=== PATIENT | female | born 1985 | race Caucasian/White ===

== ENCOUNTER → 2021-09-13 15:48 | Outpatient (CLI) | payer BC, SELFPAY ==
--- NOTE | ~2021-09-13 | US_ITS ---
EXAMINATION: US OB <= 14 weeks fetus DATE: 09/13/2021 16:23 INDICATION: Second trimester . History of spontaneous . TECHNIQUE: Real-time transabdominal obstetric ultrasound. FINDINGS: No prior studies for comparison. The uterus measures 13.8 x 6.9 x 9.1 cm. There is an intrauterine gestational sac, with pole id entified. The crown rump length measures 2.2 cm, which correlates with a estimated gestational age o f 10 weeks 1 day. heart tones are identified measuring 162 BPM. The ovaries are not visualize d. No free fluid in the pelvis. IMPRESSION: 1. SL IUP with an EGA of 10 weeks, 6 days (EDC by current ultrasound of 04/10/2022). Reviewed, dictated and finalized at location B. ORT UTILITY WORKER IMPRESSION: 1. SL IUP with an EGA of 10 weeks, 6 days (EDC by current ultrasound of 04/10/20 22).
== END ==
PROVIDERS: Visit Provider Obstetrics & Gynecology Gynecology
DX: O26.21 Pregnancy care for patient with recurrent pregnancy loss, first trimester (principal); Z3A.10 10 weeks gestation of pregnancy
CPT/HCPCS: 76801

== ENCOUNTER → 2021-11-11 11:08 | Outpatient (CLI) | payer BC, SELFPAY ==
--- NOTE | ~2021-11-11 | US_ITS ---
US OB /maternal detail DATE: 11/11/2021 11:48 INDICATION: anatomy screen TECHNIQUE: Real-time imaging and Doppler analysis COMPARISON: 09/13/2021 obstetrical ultrasound FINDINGS: Live andrews intrauterine gestation, fetus in breech presentation. Anterior placenta, lower margin 4 centers above internal os. Subjectively normal amount of amniotic fluid. No cerebral ventriculomegaly. The cerebellum appears normal. Normal nuchal fold. Normal c isterna magna. Normal upper lip appears normal. Normal cervical spine. diaphragm is intac t. No hydronephrosis. 4 chamber heart with heart rate of 142 bpm. Normal left and r ight ventricular outflow tracts. Three-vessel CORD with normal insertion at abdominal wall. Fluid is demonstrated in the s tomach and urinary bladder. End extremities appear unremarkable. Biparietal diameter 4.02 cm; 19 weeks 5 days estimated gestational age Head circumference 16.56 cm; 19 weeks 2 days Abdominal circumference 14.08 cm; 19 weeks 3 days Femur length 2.71 cm; 18 weeks 2 days Composite age by Hadlock formula is 19 weeks 1 day +/- 1 week 2 days with ROSANA of 04/02/2022, compared to 04/10/2022 according to 09/13/2021 obstetrical ultrasound examination. Estimated weight-GP: 69.7% Estimated weight 266.7 +/- 40 g Head circumference/abdominal repair specialist was 1.18, within normal range of 1.09-1.26 Femur length/head circumference 16.38, within normal range of 16.20-18.51 IMPRESSION: Normal anatomy screen Breech presentation Reviewed, dictated and finalized at Location A. Reviewed, dictated and finalized at location A. 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
== END ==
PROVIDERS: Visit Provider Obstetrics & Gynecology Gynecology
DX: Z36.9 Encounter for antenatal screening, unspecified (principal); Z3A.00 Weeks of gestation of pregnancy not specified
CPT/HCPCS: 76805

== ENCOUNTER → 2022-01-06 07:45 | Outpatient (CLI) | payer BC, SELFPAY ==
--- NOTE | ~2022-01-06 | US_ITS ---
EXAMINATION: US OB follow up EXAM DATE: 01/06/2022 08:31 INDICATION: Size greater than dates. Late 2nd trimester. TECHNIQUE: Pelvic obstetrical transabdominal sonogram was performed by a technologist. There are mu ltiple grayscale and Doppler images available for interpretation. Comparison is made to prior examina tion from 11/11/2021. FINDINGS: There is a single fetus identified which has moved into vertex presentation with a heart ra te of 146 beats per minute. The placenta is located in the anterior position. There is no sonographi c evidence of retroplacental hemorrhage identified. The amniotic fluid index is 19.3 centimeters, whi ch is normal. BIOMETRIC DATA: Biparietal diameter (BPD): 7.2 cm ----------------> 28 weeks 6 days. Head circumference (HC): 26.0 cm ----------------> 28 weeks 2 days. Abdominal circumference (AC): 24.0 cm ----------> 28 weeks 2 days. Femur length (FL): 5.1 cm --------------------------> 27 weeks 2 days. These measurements are concordant. HC/AC ratio is 1.08 (The 5th -- 95th percentile range is 1.02-1.21. Estimated weight is 1150 g +/- 173 g. This is the 90th percentile when the currently reported clinical gestation age 26 weeks 4 days, clinical estimated date of delivery (ROSANA-OPE) 04/10/2022 is us ed. estimated gestational age based on measurements from this exam is 28 weeks 1 day, with an e stimated date of delivery (ROSANA-AUA) 03/30. IMPRESSION: 1. Single fetus in vertex presentation with heart rate 146 beats per minute. 2. Estimated weight of 1150 grams, 173 percentile using the currently reported clinical gestat ion age of 26 weeks 4 days, ROSANA(OPE) 04/10. 3. Normal FAY 19.2 cm. Reviewed, dictated and finalized at location G. IMPRESSION: 1. Single fetus in vertex presentation with heart rate 146 beats per minute. 2. Estimated weight of 1150 grams, 173 percentile using the currently re ported clinical gestation age of 26 weeks 4 days, ROSANA(OPE) 04/10. 3. Normal FAY 19.2 cm.
== END ==
PROVIDERS: Visit Provider Obstetrics & Gynecology Gynecology
DX: O36.63X0 Maternal care for excessive fetal growth, third trimester, not applicable or unspecified (principal); Z3A.28 28 weeks gestation of pregnancy
CPT/HCPCS: 76816

== ENCOUNTER 2022-03-30 08:17 | Inpatient (IN) | payer BC, SELFPAY ==
[2022-03-30] VITALS (55 sets, daily range): BP systolic 92–137; BP diastolic 45–78; PULSE 52–84; RESP 12–20; TEMP 36.1–36.8; O2SAT 96–100; BMI 38.2
[2022-03-30 09:17] LABS: Basophils Percent Auto 0.4 % (0.2-1.2); Eosinophils Absolute Auto 0.1 K/mm3 (0-0.3); Eosinophils Percent Auto 1.4 % (0-4.4); Hematocrit 42.6 % (37.0-47.0); Hemoglobin 14.4 g/dL (12.0-15.0); Immature Granulocyte Absolute 0.09 K/mm3 (0.00-0.031); Immature Granulocyte Percent A 1.2 % (0-0.5); Immature Platelet Fraction Pct 10.1 % (0.9-11.2); Lymphocytes Absolute Auto 2.23 K/mm3 (0.9-3.2); Lymphocytes Percent Auto 28.9 % (18.3-44.2); Mean Corpuscular HGB Conc 33.8 g/dl (32-36); Mean Corpuscular Hemoglobin 30.8 pg (26-34); Mean Corpuscular Volume 91.2 fl (80-100); Monocytes Absolute Auto 0.7 K/mm3 (0.1-0.6); Monocytes Percent Auto 8.4 % (2.6-8.5); Neutrophils Absolute Auto 4.6 K/mm3 (1.3-6.7); Neutrophils Percent Auto 59.7 % (45.5-73.1); Platelet Count Result 145 k/mm3 (150-375); Red Blood Count 4.67 M/mm3 (4.2-5.4); Red Cell Distribution Width 12.4 % (11.5-14.5); White Blood Count 7.7 K/mm3 (4.5-10.0)
[2022-03-30 09:27] LABS: Creatinine Urine 18.8 mg/dL; Total Protein Urine Random 45 mg/dL; Ur Ttl Prot Creatinine Ratio 2.39 mg/mg (0-0.20)
[2022-03-30 09:42] LABS: Alanine Aminotransferase 16 U/L (6-35); Albumin Level 3.6 g/dL (3.5-5.1); Alkaline Phosphatase 206 U/L (38-126); Anion Gap 5 mmol/L (8-16); Aspartate Amino Transferase 25 U/L (14-36); Bilirubin,Total 0.1 mg/dL (0.2-1.3); Blood Urea Nitrogen 10 mg/dL (7-17); Calcium 9.3 mg/dL (8.4-10.2); Carbon Dioxide 22 mmol/L (22-30); Chloride 104 mmol/L (98-107); Estimated Glomerular Filt Rate > 60; Glucose 97 mg/dL (65-110); Potassium 4.1 mmol/L (3.4-5.0); Sodium 131 mmol/L (137-145); Uric Acid 4.8 mg/dL (2.5-7.5)
[2022-03-30 10:00] LABS: Add Urine Microscopic? YES; Appearance Urine Clear (Clear); Bilirubin Urine Negative (Negative); Blood Urine Trace-lysed (Negative); Color Urine Yellow (Yellow); Glucose Urine UA Negative (Negative); Ketones Urine Negative (Negative); Leukocyte Esterase Ur Negative LEU/UL (NEGATIVE); Nitrate Urine Negative (Negative); Protein Urine Trace mg/dL (Negative); Urobilinogen Urine 0.2 mg/dL (<2.0); pH Urine 6.5 (5.0-9.0)
[2022-03-30 10:01] LABS: Bacteria Urine Trace /hpf; RBC Urine 0-2 /hpf (0-2); Squamous Epithelial Cell Urine Occasional /hpf (Few); WBC Urine 0-3 /hpf (0-3)
--- NOTE | 2022-03-30 10:28 | PC.NURSE ---
Dr. Odonnell informed of pt's BP's and lab results. Transferred call to portable phone and taken to pt room for MD to speak with pt regarding plan for care. Pt was offered to have her C/S done tonight after Dr. Odonnell done in office or she can go home and monitor her BP's over the weekend. Pt opted for delivering today. Verifying C/S time with anesthesia.
--- NOTE | 2022-03-30 10:53 | PC.NURSE ---
Dr. Odonnell informed of times offered by anesthesia. Decision made to go right after the next case. Pt informed of time change.
[2022-03-30] MEDS: LACTATED RINGERS 1,000 ML 125 ML IV CONT ×2 (12:00→18:49)
--- NOTE | 2022-03-30 12:03 | LDADM ---
This patient, Hina Ambriz, was admitted to OB Post 115 on 03/30/22 at 08:17. Plans for labor, pain management and were discussed with patient. Patient/family oriented to hospital policies and general routines including ID bracelet, bed and alarms, visiting hours, pain management, procedures, bathroom and other care routines, personal items, smoking policy, room service/diet and guest tray routines, infant security routines, and visiting hours. Patient/Family are encouraged to report perceived risks to care and to ask questions if they do not understand what they are told or what they should do. See OBIX for further documentation.
--- NOTE | 2022-03-30 12:06 | WPDANESEPPF ---
Anes - Initial Pre Proc Eval Procedure: Operation Date: 04/03/22 07:30 Proposed Procedures p Repeat Section, Possible Bilateral Tubal Ligation - Pat Odonnell MD Date/Time: 03/30/22 12:06 Surgeon: Pat Odonnell MD Pre Op Diagnosis: high bp Patient Data Age: 36 Gender: F Height: 1.63 m Weight: 101.2 kg Allergies Allergy/AdvReac Type Severity Reaction Status Date / Time No Known Allergies Allergy Unverified 06/30/18 13:12 Home Medications Medication Instructions Recorded Confirmed Type Antacid (calcium carbonate) 03/17/22 History ergocalciferol (vitamin D2) 1,250 1,250 mcg PO WEEKLY 03/17/22 03/17/22 History mcg (50,000 unit) capsule (Vitamin D2) famotidine 20 mg tablet (Pepcid) 20 mg PO DAILY 03/17/22 03/17/22 History prenat.vits,lena,tiv-[id number]-hlqar 1 tablet 03/17/22 History Laboratory Tests 03/30/22 03/30/22 03/30/22 09:05 09:05 09:05 WBC 7.7 K/mm3 K/mm3 (4.5-10.0) RBC 4.67 M/mm3 M/mm3 (4.2-5.4) Hgb 14.4 g/dL g/dL (12.0-15.0) Hct 42.6 % % (37.0-47.0) MCV 91.2 fl fl (80-100) MCH 30.8 pg pg (26-34) MCHC 33.8 g/dl g/dl (32-36) RDW 12.4 % % (11.5-14.5) Plt Count 145 k/mm3 L k/mm3 (150-375) MPV 11.0 fl H fl (7.4-10.4) Immature Gran % (Auto) 1.2 % H % (0-0.5) Neut % (Auto) 59.7 % % (45.5-73.1) Lymph % (Auto) 28.9 % % (18.3-44.2) [place] % (Auto) 8.4 % % (2.6-8.5) Eos % (Auto) 1.4 % % (0-4.4) Baso % (Auto) 0.4 % % (0.2-1.2) Lymph # (Auto) 2.23 K/mm3 K/mm3 (0.9-3.2) [place] # (Auto) 0.7 K/mm3 H K/mm3 (0.1-0.6) Eos # (Auto) 0.1 K/mm3 K/mm3 (0-0.3) Baso # (Auto) 0.0 K/mm3 K/mm3 (0.0-0.1) Abs Immat Gran (auto) 0.09 K/mm3 H K/mm3 (0.00-0.031) Absolute Neuts (auto) 4.6 K/mm3 K/mm3 (1.3-6.7) Absolute Nucleated RBC 0.0 K/mm3 K/mm3 (0.0-0.012) Nucleated RBC % 0.0 % % (0.0-0.2) % Immature Plt Fraction 10.1 % % (0.9-11.2) Sodium Potassium Chloride Carbon Dioxide Anion Gap BUN Creatinine Estim Creat Clear Calc Estimated GFR Glucose Uric Acid Calcium Total Bilirubin AST ALT Alkaline Phosphatase Total Protein Albumin Urine Color Yellow (Yellow) Urine Appearance Clear (Clear) Urine pH 6.5 (5.0-9.0) Ur Specific [place] 1.010 (1.001-1.035) Urine Protein Trace mg/dL mg/dL (Negative) Urine Glucose (UA) Negative mg/dL mg/dL (Negative) Urine Ketones Negative mg/dL mg/dL (Negative) Ur Blood (Man) Trace-lysed (Negative) Urine Nitrate Negative (Negative) Urine Bilirubin Negative (Negative) Urine Urobilinogen 0.2 mg/dL mg/dL (<2.0) Ur Leukocyte Esterase Negative JUANCHO/UL JUANCHO/UL (NEGATIVE) Urine RBC 0-2 /hpf /hpf (0-2) Urine WBC 0-3 /hpf /hpf (0-3) Ur Squamous Epith Cells Occasional /hpf /hpf (Few) Urine Bacteria Trace /hpf /hpf U Random Total Protein 45 mg/dL mg/dL Urine Creatinine 18.8 mg/dL mg/dL Protein/Creat Ratio 2 2.39 mg/mg H mg/mg (0-0.20) RPR 03/30/22 03/30/22 09:05 11:27 WBC RBC Hgb Hct MCV MCH MCHC RDW Plt Count MPV Immature Gran % (Auto) Neut % (Auto) Lymph % (Auto) [place] % (Auto) Eos % (Auto) Baso % (Auto) Lymph # (Auto) [place] # (Auto) Eos # (Auto)
--- NOTE | 2022-03-30 12:12 | WPDHPUPDATE1 ---
History and Physical Update Update Date/Time: 03/30/22 12:12 History and Physical has been reviewed, including an updated exam of the patient. There are NO changes in the patient's condition. Risks, benefits, and alternatives have been discussed and questions answered. Patient agrees to proceed with procedure.
--- NOTE | 2022-03-30 12:12 | PM.IMHP ---
H&P: HPI History of Present Illness Date/Time: 03/30/22 12:12 Chief Complaint: -induced hypertension Narrative: the patient is a 36-year-old 4 ferrous 2 aborta 1 admitted at 38 and 4 7th weeks from the office secondary to elevated blood pressure and +3 proteinuria. PIH labs were performed and patient has slightly low platelets and an elevated protein creatinine ratio. Patient was initially scheduled for repeat at 39 weeks. The plan is to proceed today with . Risks of infection, bleeding, injury to internal organs, and anesthesia were reviewed. Patient agrees and voices understanding. All questions are answered. labs B positive, rubella nonimmune, RPR negative, hepatitis-B surface antigen negative, HIV negative, group B strep positive. Due to her advanced maternal age she was offered level 2 ultrasound and noninvasive testing which she declined. Review of Systems Review of Systems: No PIH symptoms good movement [facility] Surgical History Surgical History (Updated 03/30/22 @ 12:18 by Pat Odonnell MD) History of x2 Status post laparoscopic cholecystectomy Family History Family History Grandparent Family history of cardiovascular disease Parkinson disease Mother Dementia Grandparent Breast cancer in female Grandparent Chronic obstructive pulmonary disease Grandparent Diverticulitis Other Patient's mother is Social History Social History Smoking status: Never smoker Alcohol intake: current Substance use: never Spiritual care concerns: No Meds Home Medications and Allergies Home Medications Medication Instructions Recorded Confirmed Type Antacid (calcium carbonate) 1 tablet PO PRN PRN Heartburn 03/17/22 03/30/22 History ergocalciferol (vitamin D2) 1,250 1,250 mcg PO WEEKLY 03/17/22 03/30/22 History mcg (50,000 unit) capsule (Vitamin D2) famotidine 20 mg tablet (Pepcid) 20 mg PO DAILY 03/17/22 03/30/22 History prenat.vits,lena,jlr-azhp-bmoqs 1 tablet PO DAILY 03/17/22 03/30/22 History Allergies Allergy/AdvReac Type Severity Reaction Status Date / Time No Known Allergies Allergy Unverified 06/30/18 13:12 Exam Const: General: healthy appearing and alert Orientation/consciousness: patient oriented x3 GI: GI Palp: Yes Soft to palpation, No Tenderness to palpation present (GI) and Yes Other GI palpation findings present ( Fundal height 44cm & heart tones 140s) : External Female Exam: normal external appearance Speculum Exam - Vagina: normal appearance of the vagina and normal vaginal discharge Speculum Exam - Cervix: normal appearance of the cervix Bimanual exam- vagina & uterus: consistency normal Bimanual Exam- Adnexa, other: normal adnexae and No adnexal tenderness Neuro: General: patient oriented x3 H&P: Results Labs Labs: Short CBC 03/30/22 Range/Units 09:05 WBC 7.7 (4.5-10.0) K/mm3 Hgb 14.4 (12.0-15.0) g/dL Hct 42.6 (37.0-47.0) % Plt Count 145 L (150-375) k/mm3 BMP 03/30/22 09:05 Sodium 131 L Potassium 4.1 Chloride 104 Carbon Dioxide 22 BUN 10 Creatinine 0.50 L Glucose 97 Calcium 9.3 Liver Function 03/30/22 Range/Units 09:05 Total Bilirubin 0.1 L (0.2-1.3) mg/dL AST 25 (14-36) U/L ALT 16 (6-35) U/L Alkaline Phosphatase 206 H (38-126) U/L Albumin 3.6 (3.5-5.1) g/dL Urine 03/30/22 Range/Units 09:05 Urine Color Yellow (Yellow) Urine Appearance Clear (Clear) Urine pH 6.5 (5.0-9.0) Ur Specific [place] 1.010 (1.001-1.035) Urine Protein Trace (Negative) mg/dL Urine Glucose (UA) Negative (Negative) mg/dL Assessment and Plan Assessment and plan (1) History of : Code(s): Z98.891 - History of uterine scar from previous surgery Status: Acute Assessment and Plan: plan i
[2022-03-30] MEDS: ceFAZolin 2 GM/D5W 50 ML 2 GM/50 ML BAG IVPB (12:25)
[2022-03-30] MEDS: KETOROLAC 30 MG/ML VIAL (*BKC) 15 MG IV PUSH (12:48)
--- NOTE | 2022-03-30 13:13 | P.OP_ITS ---
Procedure Note - Detailed Date of Procedure 03/30/22 Pre-op Diagnosis Intrauterine at 38 and 4 7th weeks Previous x2 Gestational hypertension probable preeclampsia Post-op Diagnosis Same Procedure Performed Repeat low-transverse section Surgeon Pat Odonnell MD Anesthesia Spinal Findings Male infant weighing 9lb 9oz with 8 and 9 Apgars. True knot in the cord. Normal-appearing tubes, ovaries, and uterus. Description of Procedure The patient is taken to the operating room and placed under anesthesia in the dorsal supine position with a leftward tilt. Once anesthesia was deemed adequate she was prepped and draped in the usual sterile fashion. Pfannenstiel skin incision was made through the prior incision. Incision was carried down to the fascia which was nicked in the midline. Incision was extended laterally using Dorsey scissors. Ochsner was used to tent the fascia which was then dissected off using sharp dissection. Peritoneum was tented with a Peon and entered with Metzenbaum scissors. Bladder blade is placed and the vesicouterine peritoneum grasped and entered with Metzenbaum and extended laterally. Bladder flap was created digitally. Bladder blade is replaced. Lower uterine segment was incised in a transverse fashion with the scalpel and extended laterally using blunt traction. Clear fluid upon rupture of membranes is noted. The 's head was brought up into the incision and delivered while the certified surgical assistant applied fundal pressure. The was fully delivered and the cord clamped and cut and handed to the waiting nursery nurse. True knot in the cord is noted. Placenta was removed using manual traction after cord blood for gases and lap were drawn. The placenta is sent to pathology. Uterus was cleared of all clots and debris and exteriorized. The uterine incision was closed using 0 Monocryl in a running locked fashion. Same suture was used to imbricate. Good hemostasis is noted. The cul-de-sac is irrigated and the uterus returned to the abdomen. Gutters are irrigated. Incision was again inspected noted to be hemostatic. The fascia was closed using 0 Vicryl in a running fashion. Subcutaneous tissues were irrigated and made hemostatic using Bovie cautery. The skin incision was closed using 4-0 Vicryl in a subcuticular fashion. Dermaflex was placed over the incision. Sponge, needle, and instrument counts are correct per the OR staff. Patient was given Ancef prior to incision. Patient is a taken to recovery in stable condition. Estimated Blood Loss 235 Drains Yes (Schmid catheter) Packing No Pathology Yes (Placenta) Complications No immediate complications Condition Stable Disposition Floor
--- NOTE | 2022-03-30 13:17 | PM.OBDSVD ---
DS: Admitting Diagnosis Discharge Date 04/01/22 Admitting Diagnosis Intrauterine at 38 and 4 7th weeks Prior x2 Gestational hypertension DS: Discharge Diagnosis Discharge Diagnosis (1) 38 weeks gestation of : Code(s): Z3A.38 - 38 weeks gestation of Status: Acute (2) delivery delivered: Code(s): O82 - Encounter for delivery without indication Status: Acute (3) Preeclampsia: Code(s): O14.90 - Unspecified pre-eclampsia, unspecified trimester Status: Acute OB - DS: Summary OB Procedures : NST, PIH Mgmt and Ultrasound OB Procedures Intrapartum: low cervical, transverse OB Procedures: : None Peripartum Data Delivery Method: Section Procedures: Procedures Operation Date: 03/30/22 12:30 <No data on this case meets the specified criteria> complications: none Status at Discharge Functional status at discharge: independent ambulation Overall status at discharge: patient is progressing back to baseline Time Spent with Patient Time attestation: Total time spent providing and/or coordinating discharge services: DS: Data Data Completed and Pending Labs on day of discharge: Labs from last 24 hours 03/30/22 03/30/22 03/30/22 11:27 11:27 09:05 WBC RBC Hgb Hct MCV MCH MCHC RDW Plt Count MPV Immature Gran % (Auto) Neut % (Auto) Lymph % (Auto) [place] % (Auto) Eos % (Auto) Baso % (Auto) Lymph # (Auto) [place] # (Auto) Eos # (Auto) Baso # (Auto) Abs Immat Gran (auto) Absolute Neuts (auto) Absolute Nucleated RBC Nucleated RBC % % Immature Plt Fraction Sodium 131 L Potassium 4.1 Chloride 104 Carbon Dioxide 22 Anion Gap 5 L BUN 10 Creatinine 0.50 L Estim Creat Clear Calc Not Reportable Estimated GFR > 60 Glucose 97 Uric Acid 4.8 Calcium 9.3 Total Bilirubin 0.1 L AST 25 ALT 16 Alkaline Phosphatase 206 H Total Protein 7.0 Albumin 3.6 Urine Color Urine Appearance Urine pH Ur Specific [place] Urine Protein Urine Glucose (UA) Urine Ketones Ur Blood (Man) Urine Nitrate Urine Bilirubin Urine Urobilinogen Ur Leukocyte Esterase Urine RBC Urine WBC Ur Squamous Epith Cells Urine Bacteria U Random Total Protein Urine Creatinine Protein/Creat Ratio 2 RPR Pending Blood Type B Positive Antibody Screen Negative 03/30/22 03/30/22 03/30/22 09:05 09:05 09:05 WBC 7.7 RBC 4.67 Hgb 14.4 Hct 42.6 MCV 91.2 MCH 30.8 MCHC 33.8 RDW 12.4 Plt Count 145 L MPV 11.0 H Immature Gran % (Auto) 1.2 H Neut % (Auto) 59.7 Lymph % (Auto) 28.9 [place] % (Auto) 8.4 Eos % (Auto) 1.4 Baso % (Auto) 0.4 Lymph # (Auto) 2.23 [place] # (Auto) 0.7 H Eos # (Auto) 0.1 Baso # (Auto) 0.0 Abs Immat Gran (auto) 0.09 H Absolute Neuts (auto) 4.6 Absolute Nucleated RBC 0.0 Nucleated RBC % 0.0 % Immature Plt Fraction 10.1 Sodium Potassium Chloride Carbon Dioxide Anion Gap BUN Creatinine Estim Creat Clear Calc Estimated GFR Glucose Uric Acid Calcium Total Bilirubin AST ALT Alkaline Phosphatase Total Protein Albumin Urine Color Yellow Urine Appearance Clear Urine pH 6.5 Ur Specific [place] 1.010 Urine Protein Trace Urine Glucose (UA) Negative Urine Ketones Negative Ur Blood (Man) Trace-lysed Urine Nitrate Negative Urine Bilirubin Negative Urine Urobilinogen 0.2 Ur Leukocyte Esterase Negative Urine RBC 0-2 Urine WBC 0-3 Ur Squamous Epith Cells Occasional Urine Bacteria Trace U Random Total Protein 45 Urine Creatinine 18.8 Protein/Creat Ratio 2 2.39 H RPR Blood Type Antibody Screen Disch
[2022-03-30] MEDS: OXYTOCIN 30 UNITS/NS 500 ML 30 UNITS/500 ML BAG 125 UNITS IV CONT (14:37)
--- NOTE | 2022-03-30 15:18 | PC.NURSE ---
Report given to Danelle Nurse.
[2022-03-30] MEDS: MORPHINE SULFATE INJ (*CRX) 10 MG/ML AMP 2 MG IV PUSH (15:23)
[2022-03-30 17:18] LABS: Rapid Plasma Reagin Non-Reactive (NonReactive)
--- NOTE | 2022-03-30 18:31 | OBPPTRN ---
1547 Patient transferred to post room #284 via stretcher. Support person present. Oriented to unit, room, information board, rooming in, admission packet and security measures. Patient verbalizes understanding.
[2022-03-30] MEDS: DOCUSATE SODIUM 100 MG CAPSULE PO (20:30)
[2022-03-30] MEDS: KETOROLAC 30 MG/ML VIAL (*BKC) IV PUSH (20:30)
[2022-03-31] MEDS: ACETAMINOPHEN 325 MG TABLET 650 MG PO (00:47)
[2022-03-31] MEDS: LANOLIN (LANSINOH) 7.5 GM CREAM 1 APPLIC TOPICAL (00:48)
[2022-03-31 01:05] VITALS: PULSE 72; RESP 16; O2SAT 98
[2022-03-31 03:36] VITALS: BP 115/69; PULSE 64; RESP 16; TEMP 36.7; O2SAT 98
[2022-03-31 04:35] LABS: Basophils Percent Auto 0.3 % (0.2-1.2); Eosinophils Absolute Auto 0.1 K/mm3 (0-0.3); Eosinophils Percent Auto 0.7 % (0-4.4); Hematocrit 41.7 % (37.0-47.0); Hemoglobin 13.9 g/dL (12.0-15.0); Immature Granulocyte Absolute 0.06 K/mm3 (0.00-0.031); Immature Granulocyte Percent A 0.7 % (0-0.5); Immature Platelet Fraction Pct 10.2 % (0.9-11.2); Lymphocytes Absolute Auto 1.64 K/mm3 (0.9-3.2); Lymphocytes Percent Auto 18.7 % (18.3-44.2); Mean Corpuscular HGB Conc 33.3 g/dl (32-36); Mean Corpuscular Volume 93.1 fl (80-100); Mean Platelet Volume 11.2 fl (7.4-10.4); Monocytes Absolute Auto 0.6 K/mm3 (0.1-0.6); Monocytes Percent Auto 6.4 % (2.6-8.5); Neutrophils Absolute Auto 6.4 K/mm3 (1.3-6.7); Neutrophils Percent Auto 73.2 % (45.5-73.1); Platelet Count Result 109 k/mm3 (150-375); Red Blood Count 4.48 M/mm3 (4.2-5.4); Red Cell Distribution Width 12.6 % (11.5-14.5); White Blood Count 8.8 K/mm3 (4.5-10.0)
--- NOTE | 2022-03-31 07:41 | WPDANLDNPN2 ---
Anes-Prog Note L&D-Neuraxial Date/Time: 03/31/22 07:41 Neuraxial medications: intrathecal PF morphine Opiod-related complaints: none Patient feedback: Patient satisfied with post-operative pain management.
--- NOTE | 2022-03-31 07:41 | WPDANESPN ---
Anes - Prog Note Post-Op Date/Time: 03/31/22 07:41 Cardiovascular status: normal Respiratory status: normal Airway patency: baseline Mental status: baseline Post-Op hydration status: normal Vital Signs: Last Vital Signs Temp 36.7 C 03/31/22 03:36 Pulse 64 03/31/22 03:36 Resp 16 03/31/22 03:36 BP 115/69 03/31/22 03:36 Pulse Ox 98 03/31/22 03:36 O2 Del Method Room Air 03/31/22 03:36 Pain Score (VAS): 0 I/O: Intake & Output 03/30/22 03/30/22 03/31/22 15:59 23:59 07:59 Intake Total 1720 240 Output Total 251 049 1941 Balance -433 1220 -1110 Laboratory Tests 03/31/22 03:17 03/30/22 09:05 03/30/22 03/30/22 03/30/22 09:05 09:05 09:05 WBC 7.7 RBC 4.67 Hgb 14.4 Hct 42.6 MCV 91.2 MCH 30.8 MCHC 33.8 RDW 12.4 Plt Count 145 L MPV 11.0 H Immature Gran % (Auto) 1.2 H Neut % (Auto) 59.7 Lymph % (Auto) 28.9 [place] % (Auto) 8.4 Eos % (Auto) 1.4 Baso % (Auto) 0.4 Lymph # (Auto) 2.23 [place] # (Auto) 0.7 H Eos # (Auto) 0.1 Baso # (Auto) 0.0 Abs Immat Gran (auto) 0.09 H Absolute Neuts (auto) 4.6 Absolute Nucleated RBC 0.0 Nucleated RBC % 0.0 % Immature Plt Fraction 10.1 Sodium Potassium Chloride Carbon Dioxide Anion Gap BUN Creatinine Estim Creat Clear Calc Estimated GFR Glucose Uric Acid Calcium Total Bilirubin AST ALT Alkaline Phosphatase Total Protein Albumin Urine Color Yellow Urine Appearance Clear Urine pH 6.5 Ur Specific [place] 1.010 Urine Protein Trace Urine Glucose (UA) Negative Urine Ketones Negative Ur Blood (Man) Trace-lysed Urine Nitrate Negative Urine Bilirubin Negative Urine Urobilinogen 0.2 Ur Leukocyte Esterase Negative Urine RBC 0-2 Urine WBC 0-3 Ur Squamous Epith Cells Occasional Urine Bacteria Trace U Random Total Protein 45 Urine Creatinine 18.8 Protein/Creat Ratio 2 2.39 H RPR Blood Type Antibody Screen 03/30/22 03/30/22 03/30/22 09:05 11:27 11:27 WBC RBC Hgb Hct MCV MCH MCHC RDW Plt Count MPV Immature Gran % (Auto) Neut % (Auto) Lymph % (Auto) [place] % (Auto) Eos % (Auto) Baso % (Auto) Lymph # (Auto) [place] # (Auto) Eos # (Auto) Baso # (Auto) Abs Immat Gran (auto) Absolute Neuts (auto) Absolute Nucleated RBC Nucleated RBC % % Immature Plt Fraction Sodium 131 L Potassium 4.1 Chloride 104 Carbon Dioxide 22 Anion Gap 5 L BUN 10 Creatinine 0.50 L Estim Creat Clear Calc Not Reportable Estimated GFR > 60 Glucose 97 Uric Acid 4.8 Calcium 9.3 Total Bilirubin 0.1 L AST 25 ALT 16 Alkaline Phosphatase 206 H Total Protein 7.0 Albumin 3.6 Urine Color Urine Appearance Urine pH Ur Specific [place] Urine Protein Urine Glucose (UA) Urine Ketones Ur Blood (Man) Urine Nitrate Urine Bilirubin Urine Urobilinogen Ur Leukocyte Esterase Urine RBC Urine WBC Ur Squamous Epith Cells Urine Bacteria U Random Total Protein Urine Creatinine Protein/Creat Ratio 2 RPR Non-reactive Blood Type B Positive Antibody Screen Negative 03/31/22 03:17 WBC 8.8 RBC 4.48 Hgb 13.9 Hct 41.7 MCV 93.1 MCH 31.0 MCHC 33.3 RDW 12.6 Plt Count 109 L MPV 11.2 H Immature Gran % (Auto) 0.7 H Neut % (Auto) 73.2 H Lymph % (Auto) 18.7 [place] % (Auto) 6.4 Eos % (Auto) 0.7 Baso % (Auto) 0.3 Lymph # (Auto) 1.64 [place] # (Auto) 0.6 Eos # (Auto) 0.1 Baso # (Auto) 0.0 Abs Immat Gran (auto) 0.06 H Absolute Neuts (auto) 6.4 Absolute Nucleated RBC 0.0 Nucleated RBC % 0.0 % Immature Plt Fraction 10.2 Sodium Potassium Chloride Carbon Dioxide Anion Gap BUN Creatinine Estim Creat Clear Calc Estimated GFR Glucose Uric Acid Calciu
[2022-03-31] MEDS: DOCUSATE SODIUM 100 MG CAPSULE PO ×2 (07:51→17:31)
[2022-03-31] MEDS: HYDROcodone/acetaminophen (*CRX) 5-325 MG TABLET 1 TAB PO ×3 (07:51→17:31)
[2022-03-31] MEDS: SIMETHICONE 80 MG TAB.CHEW PO ×2 (07:51→12:58)
[2022-03-31] MEDS: IBUPROFEN 600 MG TABLET PO ×2 (07:51→17:31)
[2022-03-31] MEDS: MULTIVIT/MIN/PREN/FOL AC/IRON TABLET 1 TAB PO (07:51)
[2022-03-31 08:50] VITALS: BP 101/60; PULSE 86; RESP 18; TEMP 36.8; O2SAT 98
--- NOTE | 2022-03-31 11:05 | P.PNOB_ITS ---
OB - PN: Subj Subjective Date/time seen: 03/31/22 11:05 Patient comments: no complaints and pain well controlled baby status: doing well OB - PN: Obj Data Labs CBC & Chem 7: 03/31/22 03:17 03/30/22 09:05 Labs: Laboratory Results - last 24 hr 03/30/22 03/30/22 03/31/22 11:27 11:27 03:17 WBC 8.8 RBC 4.48 Hgb 13.9 Hct 41.7 MCV 93.1 MCH 31.0 MCHC 33.3 RDW 12.6 Plt Count 109 L MPV 11.2 H Immature Gran % (Auto) 0.7 H Neut % (Auto) 73.2 H Lymph % (Auto) 18.7 [place] % (Auto) 6.4 Eos % (Auto) 0.7 Baso % (Auto) 0.3 Lymph # (Auto) 1.64 [place] # (Auto) 0.6 Eos # (Auto) 0.1 Baso # (Auto) 0.0 Abs Immat Gran (auto) 0.06 H Absolute Neuts (auto) 6.4 Absolute Nucleated RBC 0.0 Nucleated RBC % 0.0 % Immature Plt Fraction 10.2 RPR Non-reactive Blood Type B Positive Antibody Screen Negative OB - PN A/P Assessment and Plan (1) Preeclampsia: Code(s): O14.90 - Unspecified pre-eclampsia, unspecified trimester Status: Acute Assessment and Plan: BP normal. Starting to diurese Plan day: 1 Plan: routine care Time Spent With Patient Time: Total time spent is greater than 50% in coordination of care (as documented) at patient's floor/unit and/or counseling patient: Exam : Bimanual exam- vagina & uterus: other (Uterus firm, nt @U)
[2022-03-31 12:20] VITALS: BP 122/65; PULSE 79; RESP 18; TEMP 36.4; O2SAT 98
[2022-03-31 16:33] VITALS: BP 110/67
[2022-03-31 19:52] VITALS: BP 109/70; PULSE 78; RESP 16; TEMP 36.6; O2SAT 100
[2022-04-01] MEDS: HYDROcodone/acetaminophen (*CRX) 5-325 MG TABLET 1 TAB PO ×2 (01:29→08:38)
[2022-04-01] MEDS: IBUPROFEN 600 MG TABLET PO ×2 (01:30→08:38)
[2022-04-01 01:45] VITALS: BP 117/66; PULSE 72; RESP 16; TEMP 36.2
[2022-04-01 05:18] VITALS: BP 113/71; PULSE 72; RESP 16
--- NOTE | 2022-04-01 07:36 | PM.OBPNVD ---
OB - PN: Subj Subjective Date/time seen: 04/01/22 07:36 Patient comments: no complaints and pain well controlled baby status: doing well OB - PN: Obj Data Labs CBC & Chem 7: 03/31/22 03:17 03/30/22 09:05 OB - PN A/P Plan day: 1 Plan: routine care, discharge home, follow up 6 weeks (and week 1 week) and other (plans condoms until vasectomy) Time Spent With Patient Time: Total time spent is greater than 50% in coordination of care (as documented) at patient's floor/unit and/or counseling patient: Exam Narrative: inc c/d/i : Bimanual exam- vagina & uterus: other (Uterus firm, nt @U)
[2022-04-01 08:15] VITALS: BP 127/66; PULSE 87; RESP 16; TEMP 37.1; O2SAT 100
[2022-04-01] MEDS: MULTIVIT/MIN/PREN/FOL AC/IRON TABLET 1 TAB PO (08:38)
[2022-04-01] MEDS: DOCUSATE SODIUM 100 MG CAPSULE PO (08:38)
--- NOTE | 2022-04-01 12:27 | PC.NURSE ---
Patient viewed the discharge video Mother & Baby Care, The First Two Weeks . Patient was given the opportunity and encouraged to ask questions. Patient verbalized understanding of information shared and has been given the mother/baby guide for home reference.
[2022-04-02 08:03] VITALS: BP 133/80; PULSE 80; RESP 20; TEMP 36.6; O2SAT 98
== END 2022-04-01 13:20 | disposition home or self-care (01) | DRG 788 ==
LOC: ANHOBPP 13:19 → ANHOB2 16:31
PROVIDERS: Admitting Provider Obstetrics & Gynecology Gynecology; Visit Provider Obstetrics & Gynecology Gynecology
PROC: (CPT 59514; principal; 2022-04-03 07:30)
DX: O34.219 Maternal care for unspecified type scar from previous cesarean delivery (principal); O13.4 Gestational [pregnancy-induced] hypertension without significant proteinuria, complicating childbirth; O14.94 Unspecified pre-eclampsia, complicating childbirth; O99.824 Streptococcus B carrier state complicating childbirth; O77.0 Labor and delivery complicated by meconium in amniotic fluid; O69.2XX0 Labor and delivery complicated by other cord entanglement, with compression, not applicable or unspecified; Z3A.38 38 weeks gestation of pregnancy; Z37.0 Single live birth
CPT/HCPCS: 36415; 59025; 80053; 81001; 82570; 84156; 84550; 85025; 85055; 86592; 86850; 86900; 86901; 87086; 87088; 87147; 88307; A9270; J0690; J1885; J2270; J2274; J2405; J2590; J7120